=== PATIENT | female | born 1995 | race Caucasian/White ===

== ENCOUNTER 2019-05-02 16:48 | Emergency (ER) | payer SELFPAY ==
[~2019-05-02] VITALS: Ht 170.2 cm; Wt 100.0 kg
[2019-05-02 16:53] VITALS: BP 113/66; TEMP 99.1
[2019-05-02] MEDS ORDERED: AMOXICILLIN 8751 TAB PO (17:30)
[2019-05-02 17:48] VITALS: PULSE 77
== END 2019-05-02 17:48 | disposition home or self-care (01) ==
LOC: COL.ER 16:48
DX: S61.236A Puncture wound without foreign body of right little finger without damage to nail, initial encounter (principal); W55.81XA Bitten by other mammals, initial encounter; Y92.59 Other trade areas as the place of occurrence of the external cause